=== PATIENT | female | born 1960 | race Caucasian/White ===

== ENCOUNTER 2023-10-28 18:15 | Emergency (ER) | payer OTHER, SELFPAY ==
[2023-10-28 18:26] VITALS: BP 109/80
[2023-10-28 19:00] VITALS: BMI 21.9
--- NOTE | 2023-10-28 19:02 | ED.GENMED ---
History of Present Illness
General
Chief Complaint: Chest Pain
Source: patient
Time Seen by Provider: 10/28/23 18:43
History of Present Illness
History of Present Illness:
This patient is a 62-year-old female presents emergency department complaints of chest pain it has been there on and off for few months. She describes it as a momentary 'stabbing' also described as a 'burning' under her left breast. Sometimes it
will feel like a 'bubble like I need to burp'. The pain always happens at rest, never while she is doing something. It last just a few seconds and then comes back unpredictably. Patient was negative. She called her doctor a few times about this
but was unable to make an appointment. She got concerned today which prompted her visit here. She is not short of breath and states that the symptoms actually get better with deep breathing. She denies cough, sore throat, rhinorrhea, headache,
neck pain, numbness, tingling, leg swelling, fever, chills. Patient states there is a family history of heart failure, no personal or family history of DVT or early CAD.
Past History
Past History
ED Past Medical History: None
ED Past Surgical History: None
Social History
Tobacco: Former smoker
Alcohol: None
Drug: None
Personal: Single
Living: with family
Phy Exam
Physical Exam
Physical Exam:
GENERAL: Alert , in no apparent distress
EYE: pupils equal and reactive
NECK: Supple, no significant adenopathy.
ENT: o/p clr, mmm.
CARDIAC: Regular rate and rhythm .
LUNGS: Clear breath sounds bilaterally, no acute respiratory distress, no wheezes/rales/rhonchi
ABDOMEN: Soft, without focal tenderness, no r/g, no cvat
NEUROLOGICAL: Alert and oriented, no focal neuro deficits
SKIN: Warm and dry, skin intact.
MUSCULOSKELETAL: No edema, well perfused.
PSYCH: Normal and appropriate interaction.
Scores
Heart Score for Chest Pain Patients
STEMI patient?: Not applicable
Course
Orders/Labs/Results
Orders:
Orders
10/28/23 18:29
EKG [Electrocardiogram (*1)] Urgent
Reason for Study: Chest Pain
EKG- Treatment ONCE
10/28/23 19:04
Cardiac Monitoring- Treatment ONCE
CR Chest - 2 Views Urgent
Comment:
Reason For Exam: l ant chest pain
10/28/23 19:06
Complete Blood Count/No Diff Urgent
Comprehensive Metabolic Panel Urgent
Troponin I Urgent
Abnormal Lab Results
10/28/23
19:06
RBC 4.01 L 10^6/uL
(4.20-5.40)
Hct 34.7 L %
(37.0-47.0)
MPV 10.5 H fL
(7.4-10.4)
AST 43 H U/L
(14-36)
10/28/23 19:06
10/28/23 19:06
Vital Signs
Initial and Last Documented VS:
Initial Vital Signs
Temp Pulse Resp BP Pulse Ox
98.3 F 69 16 109/80 100
10/28/23 18:26 10/28/23 18:26 10/28/23 18:26 10/28/23 18:26 10/28/23 18:26
Last Documented Vital Signs
Temp Pulse Resp BP Pulse Ox
98.3 F 60 16 106/77 97
10/28/23 18:26 10/28/23 21:09 10/28/23 21:09 10/28/23 21:09 10/28/23 21:09
*Critical Care Note
Total Time (30-74mins, 75-104mins- exclusive of procedures): Not Applicable
Update Note
Update Note:
Patient presents to the Emergency Department with ___left anterior chest pain
Number and Complexity of Problems Addressed at the Encounter
� Chronic conditions affecting care:
� Acute Exacerbation and/or Progression of Chronic Illness:
� Differential Diagnosis includes: But not limited to muscular pain, shingles, ACS, pericarditis, pneumothorax, etc. etc.
Amount and/or Complexity of Data to be Reviewed and Analyzed
� I performed an independent evaluation of and my interpretation is:
EKG: Read by me, normal sinus rhythm, normal rate, normal axis, no acute ischemia, incomplete right bundle
CT:
Xrays: Chest x-ray read by me NAD
Laboratory Studies: Unremarkable
Other:
� Review of other/old records reveals:
� Clinical information was obtained by an independent historian:
� Prescriptions/Medications Considered but not given:
� Further testing considered but not performed:
Risk of Complications and/or Morbidity or Mortality of Patient Management
� Social determinants of health affecting care:
� Discussion with other providers (PCP, Hospitalists, Consultants, etc): Patient remains comfortable here in no acute distress. I did make her aware of the incomplete right bundle noted on ECG unclear if this is new or old, and
I do not believe related to her symptoms today but does require some follow-up. Discussed with patient importance of follow-up and reasons to return to the ER, given copy of her ECG here.
� Escalation of care including admission/observation vs risk of discharge considered:
ED Attending Note
-
Portions of this chart may have been created with voice recognition software.� Occasional wrong word or��sound alike� substitutions may have occurred due to the inherent limitations of voice recognition software.
Discharge Plan
Departure
Patient Disposition: Home (Routine Discharge)
Date of Disposition: 10/28/23
Time of Disposition: 21:22
Patient with high blood pressure during this ER visit?: No
Condition: Good
Discharge Problem:
Chest pain
Instructions: Chest Pain PCP Follow Up
Referrals:
Ja Jones MD [Family Provider] - Follow up in 2-3 days
Activity Restrictions/Additional Instructions:
IF YOU DEVELOP WORSENING, INCREASING, OR NEW PAIN, ANY TROUBLE BREATHING, SWEATINESS, NAUSEA, VOMITING, BACK PAIN, JAW PAIN, OR OTHER WORRISOME SIGNS, PLEASE RETURN TO THE ER IMMEDIATELY
Interventions
Interventions:
*Risk Screen - Suicide Last Done: 10/28/23 18:26
*General Assessment Last Done: 10/28/23 18:26
*Neglect/Abuse Screening Last Done: 10/28/23 18:26
ED- Fall Risk Assessment Last Done: 10/28/23 20:00
ED- Cardiac Assessment Last Done: 10/28/23 19:04
Discharge Date and Time
Print Language: SLOVENIAN
[2023-10-28 19:20] LABS: Hematocrit 34.7 % (37.0-47.0); Hemoglobin 12.2 g/dL (12.0-16.0); Mean Corp Hgb Conc. 35.2 g/dL (33.0-37.0); Mean Corpuscular Hgb 30.4 pg (27.0-31.0); Mean Corpuscular Volume 86.5 fL (81.0-99.0); Mean Platelet Volume 10.5 fL (7.4-10.4); Platelet Count 208 10^3/uL (130-400); Red Blood Cell Count 4.01 10^6/uL (4.20-5.40); Red Cell Dist. Width 11.9 % (11.5-14.5); White Blood Cell Count 5.7 10^3/uL (4.8-10.8)
[2023-10-28 19:39] LABS: ALT (SGPT) 24 U/L (0-35); AST (SGOT) 43 U/L (14-36); Albumin 4.5 g/dl (3.5-5.0); Alkaline Phosphatase 102 U/L (38-126); Blood Urea Nitrogen 17 mg/dl (7-17); Calcium 9.8 mg/dl (8.4-10.2); Carbon Dioxide 23 mmol/L (22-30); Chloride 106 mmol/L (98-107); Estimated Creatinine Clearance 61 ml/min; Glucose 86 mg/dl (70-99); Potassium 4.2 mmol/L (3.5-5.1); Sodium 140 mmol/L (135-145); Total Bilirubin 0.4 mg/dl (0.2-1.3); Total Protein 6.8 g/dl (6.3-8.2); eGFR > 60.00
[2023-10-28 19:45] LABS: Troponin I < 0.012 ng/ml
[2023-10-28 21:09] VITALS: BP 106/77
--- NOTE | 2023-10-28 21:15 | EDRN ---
Dr. Merlos in to speak with patient about being discharged home.
== END 2023-10-28 21:28 | disposition home or self-care (01) ==
LOC: EMR 18:15
PROVIDERS: EMERGENCY PHYSICIAN Emergency Medicine; FAMILY PHYSICIAN Internal Medicine
DX: R07.89 Other chest pain (principal); Z82.49 Family history of ischemic heart disease and other diseases of the circulatory system; Z87.891 Personal history of nicotine dependence
CPT/HCPCS: 99283; 71046; 80053; 84484; 85027; 93005